=== PATIENT | female | born 1950 | race African-American/Black ===

== ENCOUNTER 2023-10-06 11:38 | Emergency (ER) | payer MEDICARE, SELFPAY ==
[2023-10-06] VITALS (27 sets, daily range): BP systolic 155–203; BP diastolic 81–98; PULSE 71–99; RESP 12–30; TEMP 36.2; O2SAT 94–100; BMI 39.1
--- NOTE | 2023-10-06 12:46 | ED_ITS ---
HPI - General Adult General Chief complaint: Dizziness Stated complaint: DIZZY/ VERTIGO L/SIDE NUMBNESS/CONFUSION Time Seen by Provider: 10/06/23 12:44 Source: patient Mode of arrival: Ambulatory History of Present Illness HPI narrative: 73-year-old female with history of hypertension, thyroidectomy on Synthroid presents with headache and left-sided tingling. She states she felt well until around 9:00 p.m. last night, when she developed gradual headache, not sudden or severe, not unilateral. She then gradually developed left-sided arm and leg tingling and feeling of heaviness. No visual or hearing changes. No neck pain. No chest pain. No back or flank or abdominal pain. No extremity pain. No other focal numbness or weakness, fevers or chills, shortness of breath, lightheadedness or passing out, previous similar episodes, difficulty speaking or eating, or any other changes. Related Data Allergies Allergy/AdvReac Type Severity Reaction Status Date / Time No Known Drug Allergies Allergy Verified 10/06/23 11:49 Review of Systems Review of Systems Narrative: Constitutional: no fever, no chills Eyes: no visual disturbance, no discharge Ears, Nose, Mouth, Throat: no rhinorrhea, no sore throat Cardiovascular: no chest pain, no palpitations Respiratory: no cough, no shortness of breath Gastrointestinal: no abdominal pain, no vomiting, no diarrhea Genitourinary: no dysuria, no hematuria Musculoskeletal: no back pain, no neck stiffness Skin: no rash, no wound Neurological: no focal weakness, + focal numbness Patient History Social History Smoking Status: Never smoker Smoking Status: Never smoker alcohol intake frequency: a few times a month Alcohol type: wine Substance Use Type: does not use Exam Narrative Exam Narrative: Const: no acute distress, non toxic appearing; calm, conversant, pleasant Eyes: PERRLA, EOMI ENT: mucous membranes moist Neck: supple, non-tender; no bruits or thrills; no stiffness or pain with range of motion Resp: no respiratory distress, clear to auscultation bilaterally Card: regular rate and rhythm, no murmurs Abd: non tender diffusely, no rigidity or rebound or guarding Back: no T or L spine tenderness, no CVA tenderness bilaterally Extrem: no deformities, no swelling bilateral lower extremities, 2+ distal pulses all extremities Neuro: ANOx4. director operating 2-12 intact. No rotatory or vertical nystagmus. Normal tone all extremities. Sensation intact to light touch all extremities. No ankle clonus bilaterally. 5/5 motor strength all extremities. Normal FNF BUE; normal heel-farrell test BLE. No pronator drift. No dysarthria. No neglect. Grossly normal cognition. Skin: no rash, warm and dry Initial Vital Signs Initial Vital Signs: Vital Signs Temperature 97.1 F L 10/06/23 11:49 Pulse Rate 99 H 10/06/23 11:49 Respiratory Rate 18 10/06/23 11:49 Blood Pressure 159/85 H 10/06/23 11:49 Pulse Oximetry 97 10/06/23 11:49 Oxygen Delivery Method Room Air 10/06/23 11:49 Course Course Course Narrative: This patient presents with headache and left-sided sensory changes starting last night, currently with fully intact neurovascular exam, with NIHSS of 0. I have considered broad differential including but not limited to electrolyte derangements, ischemic stroke, hemorrhagic stroke, aneurysm, vascular dissection, paresthesias, ACS, among others. Her current well appearance and reassuring exam is reassuring against many emergent etiologies. I am nonetheless obtaining CT head, CTA head and neck, EKG, troponin, CBC, CMP. I am giving fluids and will closely reassess. She declines other medications currently. While I think ischemic stroke is much less likely clinically, note she is well outside of any tPA window and also does not show signs of large vessel occlusion on my exam. EKG NSR without acute ischemia or immediately concerning interval prolongation on my review. CBC with no leukocytosis or anemia. Mild thrombocytopenia present without clear evidence of bleeding. CMP with creatinine at 1.06 without recent for comparison, hyperglycemia, mild hypocalcemia, with bilirubin elevation but no ALT or AST your alk-phos elevation and no abdominal pain or tenderness. Troponin reassuring. Radiology review of imaging below, which I agree with on my independent review: CT Head: FINDINGS: Image quality: Diagnostic. CSF spaces: Basal cisterns are patent. No extra-axial fluid collections. Ventricles are normal in size and shape. Brain: No midline shift. No intracranial masses or hemorrhage. Pruett-white matter interface is normal. Skull and face: Calvarium and visualized facial bones are intact, without suspicious lesions. Sinuses: Visualized sinuses and mastoids are clear. Small left ethmoid osteoma, 7 mm IMPRESSION: Mild atrophy and white matter chronic ischemic change without intracranial hemorrhage or mass effect. Approved by: Herbert Zaman M.D. on 10/06/2023 at 14:08 CTA head/neck: FINDINGS: Cerebral CT Angiogram: Internal carotid arteries: No acute findings. Intracranial ICA are patent with no significant stenosis. No occlusion. No aneurysm. Anterior cerebral arteries: Unremarkable. No significant stenosis. No occlusion. No aneurysm. Middle cerebral arteries: Unremarkable. No significant stenosis. No occlusion. No aneurysm. Posterior cerebral arteries: Unremarkable. No significant stenosis. No occlusion. No aneurysm. Basilar artery: Unremarkable. No significant stenosis. No occlusion. No aneurysm. Vertebral arteries: Unremarkable as visualized. Dural venous sinuses: Unremarkable given phase of enhancement. Other: Arterial phase brain parenchyma is unremarkable. Neck CT Angiogram: Internal carotid arteries: Unremarkable. No significant stenosis. No dissection or occlusion. Common carotid arteries: Unremarkable. No significant stenosis. No dissection or occlusion. External carotid arteries: Unremarkable. No occlusion. Vertebral arteries: Unremarkable. No significant stenosis. No dissection or occlusion. Left vertebral artery dominance Other: None. Aortic Arch and Mediastinum: Partially visualized aortic arch unremarkable without evidence of aneurysm. Origins of the great vessels unremarkable. IMPRESSION: 1. Normal CT angiogram of the head and neck Approved by: Herbert Zaman M.D. on 10/06/2023 at 14:06 Workup is reassuring. At this juncture, I think ischemic stroke is very unlikely. Paresthesias of unknown etiology seem most likely at this time. However, out of caution, I am obtaining brain MRI for further assessment. Radiology review of CXR below, which I agree with on my independent review: FINDINGS: Surgical changes and devices: None. Lungs and pleura: Lungs are clear. No pleural effusions or pneumothorax. Mediastinum: Mediastinal contours appear normal. Heart size is normal. Bones and chest wall: No suspicious bony lesions. Overlying soft tissues appear unremarkable. IMPRESSION: No acute cardiopulmonary abnormality is seen. Approved by: Herbert Zaman M.D. on 10/06/2023 at 14:53 MRI is reassuring, as below: FINDINGS: Image quality: Excellent. CSF Spaces: Basal cisterns are patent. No extra-axial fluid collections. Ventricles are normal in size and shape. Brain: No intracranial masses or hemorrhage. Pruett/white matter interface is normal. Brainstem appears normal. Diffusion-weighted sequence is unremarkable without evidence of acute infarct. Normal intravascular flow voids are present. Atrophy and moderate white matter chronic ischemic change Skull and face: Calvarium has normal marrow signal. Orbits appear normal. Sinuses: Sinuses and mastoids are clear. IMPRESSION: Atrophy and white matter chronic ischemic change without acute infarct, hemorrhage or mass lesion Approved by: Herbert Zaman M.D. on 10/06/2023 at 15:59 Viral swab negative. Blood pressure is elevated here, however without clinical evidence of hypertensive emergency. Discussed with patient for follow-up. Work up has been reassuring. Patient is feeling improved here. Length of symptoms and work up would not clearly suggest TIA. Paresthesias are not of clear etiology at this juncture, but with extensive reassuring work up as above, patient appears stable for discharge. A musculoskeletal etiology such as radiculopathy or pinched nerve it is certainly possible. No evidence of spinal cord compression. She has no other new concerns and is fully neurovascularly intact on repeat exam. We discussed the importance of close follow up and return precautions. Repeat exam and vital signs reassuring. Questions answered. Plan reviewed. Patient discharged in stable condition. Orders Ordered: ED Orders 10/06/23 11:54 Consult to DELIVERY TECH - Front End Loader Driver Stat 10/06/23 12:56 CT angio head and neck Stat CT head/brain wo con Stat XR chest 1V Stat EKG-12 Lead Stat 10/06/23 13:13 CBC Auto Diff [Complete Blood Count AUTO DIFF] Stat CMP [Comprehensive Metabolic Panel] Stat Troponin I Stat 10/06/23 15:16 MR head/brain wo con Stat 10/06/23 15:32 Covid-19 + FLU A/B + RSV - PCR Stat Discontinued Medications Sodium Chloride (Normal Saline 0.9%) 1,000 mls @ 1,000 mls/hr IV BOLUS ONE Stop: 10/06/23 13:58 Last Admin: 10/06/23 13:58 Dose: 1,000 mls/hr Documented By: RB Vital Signs Vital signs: Vital Signs - 8 hr 10/06/23 11:49 10/06/23 12:03 10/06/23 12:30 Temperature 97.1 F L Pulse Rate 99 H 91 H Respiratory Rate 18 20 Blood Pressure 159/85 H 168/84 H Pulse Oximetry 97 95 Oxygen Delivery Method Room Air 10/06/23 12:30 10/06/23 13:00 10/06/23 13:00 Temperature Pulse Rate 85 79 Respiratory Rate 22 17 Blood Pressure 185/93 H Pulse Oximetry 97 Oxygen Delivery Method 10/06/23 13:30 10/06/23 13:45 10/06/23 13:59 Temperature Pulse Rate 80 82 Respiratory Rate 21 22 Blood Pressure 168/81 H Pulse Oximetry 100 99 Oxygen Delivery Method 10/06/23 13:59 10/06/23 14:00 10/06/23 14:01 Temperature Pulse Rate 78 80 Respiratory Rate 17 13 Blood Pressure 175/85 H Pulse Oximetry 98 97 Oxygen Delivery Method 10/06/23 14:01 10/06/23 14:24 10/06/23 14:25 Temperature Pulse Rate 80 75 Respiratory Rate 22 12 Blood Pressure 155/93 H Pulse Oximetry 97 98 Oxygen Delivery Method 10/06/23 14:25 10/06/23 14:30 10/06/23 14:30 Temperature Pulse Rate 74 74 Respiratory Rate 16 22 Blood Pressure 174/86 H Pulse Oximetry 99 98 Oxygen Delivery Method 10/06/23 14:45 10/06/23 15:00 10/06/23 15:00 Temperature Pulse Rate 72 76 Respiratory Rate 17 17 Blood Pressure 156/83 H Pulse Oximetry 96 97 Oxygen Delivery Method 10/06/23 15:15 10/06/23 16:11 10/06/23 16:12 Temperature Pulse Rate 71 81 74 Respiratory Rate 17 18 22 Blood Pressure Pulse Oximetry 94 98 98 Oxygen Delivery Method 10/06/23 16:12 10/06/23 16:15 10/06/23 16:30 Temperature Pulse Rate 79 80 Respiratory Rate 22 20 Blood Pressure 163/87 H Pulse Oximetry 97 99 Oxygen Delivery Method 10/06/23 16:31 10/06/23 16:31 10/06/23 16:45 Temperature Pulse Rate 80 79 Respiratory Rate 16 19 Blood Pressure 203/98 H Pulse Oximetry 99 97 Oxygen Delivery Method 10/06/23 16:58 10/06/23 16:58 10/06/23 17:00 Temperature Pulse Rate 78 75 Respiratory Rate 15 25 H Blood Pressure 197/98 H Pulse Oximetry 97 98 Oxygen Delivery Method 10/06/23 17:10 10/06/23 17:10 10/06/23 17:15 Temperature Pulse Rate 75 78 Respiratory Rate 15 15 Blood Pressure 174/84 H Pulse Oximetry 98 100 Oxygen Delivery Method 10/06/23 17:20 10/06/23 17:20 10/06/23 17:30 Temperature Pulse Rate 76 Respiratory Rate 30 H Blood Pressure 176/87 H 174/88 H Pulse Oximetry 99 Oxygen Delivery Method 10/06/23 17:30 Temperature Pulse Rate 76 Respiratory Rate 19 Blood Pressure Pulse Oximetry 98 Oxygen Delivery Method Medical Decision Making Lab Data 10/06/23 13:13 10/06/23 13:13 Labs: Lab Results 10/06/23 10/06/23 Range/Units 13:13 15:32 WBC 5.0 (4.5-11.0) X10^3/uL RBC 4.72 (4.0-5.2) X10^6/uL Hgb 12.8 (12.0-16.0) g/dL Hct 38.8 (36-46) % MCV 82.1 (80-100) fL MCH 27.1 (26-34) PG MCHC 33.1 (30-36) % RDW 15.6 H (11.6-14.8) % Plt Count 135 L (150-400) X10^3/uL Neut % (Auto) 66.9 (50-75) % Lymph % (Auto) 23.4 L (25-40) % [place] % (Auto) 7.1 (3-14) % Eos % (Auto) 1.7 L (2-4) % Baso % (Auto) 0.9 (0-2) % Neut # (Auto) 3300 (2157-9546) /uL Lymph # (Auto) 1200 (2908-7643) /uL [place] # (Auto) 400 (0-900) /uL Eos # (Auto) 100 (0-450) /uL Baso # (Auto) 0 (0-100) /uL Sodium 141 (137-145) mmol/L Potassium 3.4 (3.4-5.1) mmol/L Chloride 104 (98-107) mmol/L Carbon Dioxide 29 (22-32) mmol/L BUN 18 H (7-17) mg/dL Creatinine 1.06 H (0.52-1.04) mg/dL Estimated GFR 56 L (>60) mL/min BUN/Creatinine Ratio 17.0 (6-22) Glucose 127 H (80-110) mg/dL Calcium 8.1 L (8.4-10.2) mg/dL Total Bilirubin 2.3 H (0.2-1.3) mg/dL AST 25 (14-36) IU/L ALT 18 (<35) IU/L Alkaline Phosphatase 59 (38-126) U/L Troponin I < 0.012 (0.01-0.034) ng/mL Total Protein 8.5 H (6.3-8.2) g/dL Albumin 4.7 (3.5-5.0) g/dL Globulin 3.8 (1.7-4.1) g/dL Albumin/Globulin Ratio 1.2 (1.0-2.8) SARS-CoV-2 (PCR) Negative (Negative) Influenza A (RT-PCR) Flu a negative (NEGATIVE) Influenza B (RT-PCR) Flu b negative (NEGATIVE) RSV (PCR) Negative (Negative) Discharge Plan Departure Patient Disposition: Home Clinical Impression: Paresthesia Activity Restrictions/Additional Instructions: It was a pleasure taking care of you today. It is important to fully read and understand the below. Please ask us if you have any questions. We obtained extensive testing today, with an EKG, labs, substantial CT scans and a brain MRI. Your work up is overall reassuring here. However, it is very important to follow up with your primary doctor within 3-5 days to be reassessed. If you have any new or worsening symptoms, please immediately return. No tests or assessments are perfect, and your condition could private branch exchange service adviser time. If your symptoms change or worsen, it is very important you immediately seek medical care. If you have any new or worsening pain, shortness of breath, fever, vomiting, confusion, numbness, weakness, visual or hearing changes, trouble walking or talking or eating, or anything else that concerns you, please immediately seek medical care. If you have been prescribed any medications: please read the drug package inserts on how to properly use the medication and any potential side effects. If you had labs (blood tests) or imaging (CT scan or x-rays) done during your visit: please follow up on the results of these with your primary care doctor, as discussed. In addition, please know the results we received today may be preliminary. Our usual practice is to follow up on tests within a few days of a patient's discharge from the Emergency Department and notify you of any changes. These may lead to changes to your treatment plan. However, the best way to obtain and interpret these test results is through your Primary Care Provider. If you need to update your contact information, please stop by the java front end web developer and alert the Registration personnel before you leave the Emergency Department. Thank you for the opportunity to participate in your healthcare. We are always here and happy to see you in the future. -- PLEASE TAKE THE ATTACHED IMAGING TO YOUR DOCTORS: CT Head: FINDINGS: Image quality: Diagnostic. CSF spaces: Basal cisterns are patent. No extra-axial fluid collections. Ventricles are normal in size and shape. Brain: No midline shift. No intracranial masses or hemorrhage. Pruett-white matter interface is normal. Skull and face: Calvarium and visualized facial bones are intact, without suspicious lesions. Sinuses: Visualized sinuses and mastoids are clear. Small left ethmoid osteoma, 7 mm IMPRESSION: Mild atrophy and white matter chronic ischemic change without intracranial hemorrhage or mass effect. Approved by: Herbert Zaman M.D. on 10/06/2023 at 14:08 CTA head/neck: FINDINGS: Cerebral CT Angiogram: Internal carotid arteries: No acute findings. Intracranial ICA are patent with no significant stenosis. No occlusion. No aneurysm. Anterior cerebral arteries: Unremarkable. No significant stenosis. No occlusion. No aneurysm. Middle cerebral arteries: Unremarkable. No significant stenosis. No occlusion. No aneurysm. Posterior cerebral arteries: Unremarkable. No significant stenosis. No occlusion. No aneurysm. Basilar artery: Unremarkable. No significant stenosis. No occlusion. No aneurysm. Vertebral arteries: Unremarkable as visualized. Dural venous sinuses: Unremarkable given phase of enhancement. Other: Arterial phase brain parenchyma is unremarkable. Neck CT Angiogram: Internal carotid arteries: Unremarkable. No significant stenosis. No dissection or occlusion. Common carotid arteries: Unremarkable. No significant stenosis. No dissection or occlusion. External carotid arteries: Unremarkable. No occlusion. Vertebral arteries: Unremarkable. No significant stenosis. No dissection or occlusion. Left vertebral artery dominance Other: None. Aortic Arch and Mediastinum: Partially visualized aortic arch unremarkable without evidence of aneurysm. Origins of the great vessels unremarkable. IMPRESSION: 1. Normal CT angiogram of the head and neck Approved by: Herbert Zaman M.D. on 10/06/2023 at 14:06 Workup is reassuring. At this juncture, I think ischemic stroke is very unlikely. Paresthesias of unknown etiology seem most likely at this time. However, out of caution, I am obtaining brain MRI for further assessment. Radiology review of CXR below, which I agree with on my independent review: FINDINGS: Surgical changes and devices: None. Lungs and pleura: Lungs are clear. No pleural effusions or pneumothorax. Mediastinum: Mediastinal contours appear normal. Heart size is normal. Bones and chest wall: No suspicious bony lesions. Overlying soft tissues appear unremarkable. IMPRESSION: No acute cardiopulmonary abnormality is seen. Approved by: Herbert Zaman M.D. on 10/06/2023 at 14:53 MRI is reassuring, as below: FINDINGS: Image quality: Excellent. CSF Spaces: Basal cisterns are patent. No extra-axial fluid collections. Ventricles are normal in size and shape. Brain: No intracranial masses or hemorrhage. Pruett/white matter interface is normal. Brainstem appears normal. Diffusion-weighted sequence is unremarkable without evidence of acute infarct. Normal intravascular flow voids are present. Atrophy and moderate white matter chronic ischemic change Skull and face: Calvarium has normal marrow signal. Orbits appear normal. Sinuses: Sinuses and mastoids are clear. IMPRESSION: Atrophy and white matter chronic ischemic change without acute infarct, hemorrhage or mass lesion Approved by: Herbert Zaman M.D. on 10/06/2023 at 15:59 Referrals: Miscellaneous,DoctorMD [Primary Care Provider] - Stand Alone Forms: Patient Portal/API
--- NOTE | 2023-10-06 12:56 | DI.RAD.S_ITS ---
PROCEDURE: XR CHEST 1V INDICATIONS: L sided tingling TECHNIQUE: One view of the chest was acquired. COMPARISON: None. FINDINGS: Surgical changes and devices: None. Lungs and pleura: Lungs are clear. No pleural effusions or pneumothorax. Mediastinum: Mediastinal contours appear normal. Heart size is normal. Bones and chest wall: No suspicious bony lesions. Overlying soft tissues appear unremarkable. IMPRESSION: No acute cardiopulmonary abnormality is seen. Approved by: Herbert Zaman M.D. on 10/06/2023 at 14:53
--- NOTE | 2023-10-06 12:56 | DI.CT.S_ITS ---
PROCEDURE: CT HEAD/BRAIN WO CON INDICATIONS: L sided tingling, headache TECHNIQUE: Noncontrast 4.5 mm thick angled axial sections acquired from the foramen magnum to the vertex, with coronal and sagittal reformats. For radiation dose reduction, the following was used: automated exposure control, adjustment of mA and/or kV according to patient size. COMPARISON: None. FINDINGS: Image quality: Diagnostic. CSF spaces: Basal cisterns are patent. No extra-axial fluid collections. Ventricles are normal in size and shape. Brain: No midline shift. No intracranial masses or hemorrhage. Pruett-white matter interface is normal. Skull and face: Calvarium and visualized facial bones are intact, without suspicious lesions. Sinuses: Visualized sinuses and mastoids are clear. Small left ethmoid osteoma, 7 mm IMPRESSION: Mild atrophy and white matter chronic ischemic change without intracranial hemorrhage or mass effect. Approved by: Herbert Zaman M.D. on 10/06/2023 at 14:08
--- NOTE | 2023-10-06 12:56 | DI.CT.S_ITS ---
PROCEDURE: CT ANGIO HEAD AND NECK INDICATIONS: headache, L sided tingling TECHNIQUE: After the administration of intravenous contrast, 1 mm thick sections acquired from the aortic arch through the [place]. 3-dimensional lythftu-zfunfovdp-sldkqknfan (MIP) and/or volume rendering reformats were acquired of the central intracranial vasculature and neck separately. For radiation dose reduction, the following was used: automated exposure control, adjustment of mA and/or kV according to patient size. COMPARISON: None. FINDINGS: Cerebral CT Angiogram: Internal carotid arteries: No acute findings. Intracranial ICA are patent with no significant stenosis. No occlusion. No aneurysm. Anterior cerebral arteries: Unremarkable. No significant stenosis. No occlusion. No aneurysm. Middle cerebral arteries: Unremarkable. No significant stenosis. No occlusion. No aneurysm. Posterior cerebral arteries: Unremarkable. No significant stenosis. No occlusion. No aneurysm. Basilar artery: Unremarkable. No significant stenosis. No occlusion. No aneurysm. Vertebral arteries: Unremarkable as visualized. Dural venous sinuses: Unremarkable given phase of enhancement. Other: Arterial phase brain parenchyma is unremarkable. Neck CT Angiogram: Internal carotid arteries: Unremarkable. No significant stenosis. No dissection or occlusion. Common carotid arteries: Unremarkable. No significant stenosis. No dissection or occlusion. External carotid arteries: Unremarkable. No occlusion. Vertebral arteries: Unremarkable. No significant stenosis. No dissection or occlusion. Left vertebral artery dominance Other: None. Aortic Arch and Mediastinum: Partially visualized aortic arch unremarkable without evidence of aneurysm. Origins of the great vessels unremarkable. IMPRESSION: 1. Normal CT angiogram of the head and neck Approved by: Herbert Zaman M.D. on 10/06/2023 at 14:06
--- NOTE | 2023-10-06 13:24 | PC.NURSE ---
Pt placed on 2L, O2 sat 88-89 RA. Currently 92% on 2L with ear probe. Physician advised.
[2023-10-06 13:32] LABS: Add Manual Diff / Slide Review NO; Basophils Absolute Auto 0 /uL (0-100); Basophils Percent Auto 0.9 % (0-2); Eosinophils Absolute Auto 100 /uL (0-450); Eosinophils Percent Auto 1.7 % (2-4); Hematocrit 38.8 % (36-46); Hemoglobin 12.8 g/dL (12.0-16.0); Lymphocytes Absolute Auto 1200 /uL (1100-4500); Lymphocytes Percent Auto 23.4 % (25-40); Mean Corpuscular HGB Conc 33.1 % (30-36); Mean Corpuscular Hemoglobin 27.1 PG (26-34); Mean Corpuscular Volume 82.1 fL (80-100); Monocytes Absolute Auto 400 /uL (0-900); Monocytes Percent Auto 7.1 % (3-14); Neutrophils Absolute Auto 3300 /uL (1500-7000); Neutrophils Percent Auto 66.9 % (50-75); Platelet Count 135 X10^3/uL (150-400); Red Blood Cell Count 4.72 X10^6/uL (4.0-5.2); Red Cell Distribution Width 15.6 % (11.6-14.8)
[2023-10-06 13:52] LABS: Alanine Aminotransferase 18 IU/L (<35); Albumin 4.7 g/dL (3.5-5.0); Albumin Globulin Ratio 1.2 (1.0-2.8); Alkaline Phosphatase 59 U/L (38-126); Aspartate Aminotransferase 25 IU/L (14-36); Bilirubin Total 2.3 mg/dL (0.2-1.3); Blood Urea Nitrogen 18 mg/dL (7-17); Calcium 8.1 mg/dL (8.4-10.2); Carbon Dioxide 29 mmol/L (22-32); Chloride 104 mmol/L (98-107); Estimated Glomerular Filt Rate 56 mL/min (>60); Globulin 3.8 g/dL (1.7-4.1); Glucose 127 mg/dL (80-110); HEMOLYSIS < 15 (0-50); Potassium 3.4 mmol/L (3.4-5.1); Sodium 141 mmol/L (137-145); Total Protein 8.5 g/dL (6.3-8.2)
[2023-10-06] MEDS: SODIUM CHLORIDE 0.9% 1,000 ML 1000 ML IV (13:58)
[2023-10-06 14:04] LABS: Troponin I < 0.012 ng/mL (0.01-0.034)
--- NOTE | 2023-10-06 15:16 | DI.MRI.S_ITS ---
PROCEDURE: MR HEAD/BRAIN WO CON INDICATIONS: [place], L sided sensory changes, assess for stroke TECHNIQUE: Noncontrast axial T1 spin echo, axial T2 fast spin echo, sagittal and axial FLAIR, coronal T2 fast spin echo, axial gradient echo, axial diffusion and ADC through the brain. COMPARISON: None. FINDINGS: Image quality: Excellent. CSF Spaces: Basal cisterns are patent. No extra-axial fluid collections. Ventricles are normal in size and shape. Brain: No intracranial masses or hemorrhage. Pruett/white matter interface is normal. Brainstem appears normal. Diffusion-weighted sequence is unremarkable without evidence of acute infarct. Normal intravascular flow voids are present. Atrophy and moderate white matter chronic ischemic change Skull and face: Calvarium has normal marrow signal. Orbits appear normal. Sinuses: Sinuses and mastoids are clear. IMPRESSION: Atrophy and white matter chronic ischemic change without acute infarct, hemorrhage or mass lesion Approved by: Herbert Zaman M.D. on 10/06/2023 at 15:59
[2023-10-06 16:17] LABS: Influenza A - CEPHEID Flu A NEGATIVE (NEGATIVE); Influenza B - CEPHEID Flu B NEGATIVE (NEGATIVE); Respiratory Syncytial Virus Negative (Negative)
[2023-10-06 16:18] LABS: COVID-19 CEPHEID 4-PLEX PCR Negative (Negative)
--- NOTE | 2023-10-08 13:24 | CM.SWNOTE ---
ED VETERINARY MEAT INSPECTOR f/u Note VETERINARY MEAT INSPECTOR receives consult for f/u call due to concern for patient's need for resources, it is also reported that patient does not have PCP. VETERINARY MEAT INSPECTOR calls patient and leaves VM requesting return call. Laurita Brown, STABBER
== END 2023-10-06 17:46 | disposition home or self-care (01) ==
PROVIDERS: Emergency Provider Emergency Medicine
DX: R20.2 Paresthesia of skin (principal); R51.9 Headache, unspecified; R07.9 Chest pain, unspecified; Z20.822 Contact with and (suspected) exposure to COVID-19
CPT/HCPCS: 0241U; 70450; 70496; 70498; 70551; 71045; 80053; 84484; 85025; 93005; 93010; 99284; Q9967

== ENCOUNTER 2024-05-03 07:24 | Emergency (ER) | payer OTHER, SELFPAY ==
--- NOTE | 2024-05-03 07:27 | ED.GENADULT ---
HPI - General Adult General Chief complaint: Extremity Injury, Upper Stated complaint: right arm pain Time Seen by Provider: 05/03/24 07:27 Source: patient, RN notes reviewed and old records reviewed Mode of arrival: Ambulatory Limitations: no limitations History of Present Illness HPI narrative: This is a 73-year-old female with history of hypertension and hypothyroidism who presents with complaint of right shoulder pain. Patient states it occurred last Saturday she was lifting a heavy object for work and felt pain that gradually worsened into the next day. Patient states pain is very much localized to the shoulder does occasionally radiate down words. No paresthesias noted. No weakness other than occasionally dropping some objects. She notes holding her flexed in across her chest slightly elevated improves her pain. Any sort of movement increases it. She has not noticed any bruising swelling or other skin changes. She did not feel any ripping, popping or tearing sensation. She thought taking a couple days off would help but it is progressed and not improved. Patient states home medications are lisinopril and levothyroxine. She has had a prior hernia repair. No prior surgeries to the shoulder or upper extremity. No known drug allergies. No regular tobacco, occasional alcohol, no recreational drugs. Patient states this did occur at work. She has not taken any [id number] medications. Related Data Previous Rx's Medication Instructions Recorded lisinopril 20 mg tablet 20 mg PO DAILY #90 tabs 10/21/23 Allergies Allergy/AdvReac Type Severity Reaction Status Date / Time No Known Drug Allergies Allergy Verified 10/21/23 08:08 Review of Systems Review of Systems ROS Unobtainable: All systems reviewed & are unremarkable except as noted in HPI and below Patient History Medical History Eczema Alopecia Acne PTSD (post-traumatic stress disorder) Chronic back pain COVID Measles Chicken pox Sickle cell anemia Anemia Heavy menstrual period (~1978) Fibroids (~1977) Chlamydia (~2008) Family history of pancreatic cancer Hypertension Postoperative hypothyroidism Surgical History Anesthesia History of thyroidectomy Family History Father Diabetes mellitus Mother Cancer Diabetes mellitus Hypertension Hyperlipidemia Brother Diabetes mellitus Hypertension Sister Stroke Diabetes mellitus Hyperlipidemia Hypertension Sister Sickle cell anemia Hypertension Grandfather History of heart disease Grandmother Diabetes mellitus Grandmother Diabetes mellitus Family/Other Diabetes mellitus Social History Smoking Status: Never smoker Smoking Status: Never smoker alcohol intake frequency: a few times a month Alcohol type: wine Substance Use Type: does not use Exam Narrative Exam Narrative: GENERAL: Alert and oriented x three, female in mild distress HEENT: Head normocephalic, atraumatic, EOMI, pupils reactive, face symmetric, moist mucous membranes NECK: Supple, full range of motion CARDIOVASCULAR: Regular rate and rhythm without murmurs, rubs or gallops. RESPIRATORY: Breath sounds equal bilaterally, no wheezes rales or rhonchi. ABDOMEN: Soft, nontender. Normoactive bowel sounds all 4 quadrants. No guarding or rebound, rigidity, no mass : No CVA tenderness EXTREMITIES: Normal range of motion, no clubbing or edema. Neurovascularly intact. Patient has tenderness over the right AC joint as well as the biceps groove. No deformity appreciated. Increased pain with movement at both of these locations. Substation Supervisor are equal bilaterally, 5/5 muscle strength although patient is uncomfortable with push and pull movements. 2+ radial pulse. Cap refill less than 2 seconds throughout 5 fingers. Normal sensation throughout. NEUROLOGICAL: Cranial nerves II through XII grossly intact. Moving all extremities SKIN: Warm, dry, no petechiae, no rashes or lesions. Initial Vital Signs Initial Vital Signs: Vital Signs Temperature 97.4 F L 05/03/24 07:31 Pulse Rate 96 H 05/03/24 07:31 Respiratory Rate 16 05/03/24 07:31 Blood Pressure 182/91 H 05/03/24 07:31 Pulse Oximetry 100 05/03/24 07:31 Oxygen Delivery Method Room Air 05/03/24 07:31 Course Orders Ordered: ED Orders 05/03/24 07:36 XR shoulder RT min 2V Stat Discontinued Medications Acetaminophen (Acetaminophen 325 Mg Tablet) 650 mg PO NOW ONE Stop: 05/03/24 07:37 Last Admin: 05/03/24 07:47 Dose: 650 mg Ibuprofen (Ibuprofen 400 Mg Tablet) 800 mg PO NOW ONE Stop: 05/03/24 07:37 Last Admin: 05/03/24 07:47 Dose: 800 mg Vital Signs Vital signs: Vital Signs - 8 hr 05/03/24 07:31 05/03/24 08:07 05/03/24 08:09 Temperature 97.4 F L Pulse Rate 96 H 77 Pulse Rate [Right Radial] 77 Respiratory Rate 16 18 Blood Pressure 182/91 H Pulse Oximetry 100 98 Oxygen Delivery Method Room Air Room Air Medical Decision Making Imaging Data Extremity x-ray #1: Radiologist's Impression: Jorge Bond??73??F??1950 ? Allergy/Adv: No Known Drug Allergies (More??) Close Shoulder X-Ray (Signed) Fernandez Baldwin - 05/03/24 Brain MRI (Signed) Herbert Zaman - 10/06/23 Head/Neck CTA (Signed) Austyn,Herbert - 10/06/[address] (Signed) Zaman,Herbert - 10/06/23 Chest X-Ray (Signed) Zaman,Herbert - 10/06/23 [address] [address] XRay Report Signed Patient: Jorge Bond MR#: [id number] : 1950 Acct:[id number] Age/Sex: 73 / F Date of Service: 05/03/24 Loc: ED Accession Number: [id number] Procedure: XR shoulder RT min 2V Ordering Provider: Esthela Sandoval D.O. PROCEDURE: XR SHOULDER RT MIN 2V INDICATIONS: right ac pain after lifting heavy object. TECHNIQUE: 3 views of the shoulder were acquired. COMPARISON: None. FINDINGS: Bones: No fractures or dislocations. Focal irregularity is seen involving the acromioclavicular joint, without malalignment. No suspicious bony lesions. Visualized ribs appear intact. Generalized degenerative changes are seen. Soft tissues: No suspicious soft tissue calcifications. IMPRESSION: Focal irregularity of the acromioclavicular joint, yet without malalignment. No fractures or dislocations are seen. Generalized degenerative changes are seen by plain film. If it would be helpful for clinical management decision making, please consider a dedicated, scheduled shoulder MRI for further evaluation (assuming that there is no contraindication). Dictated by: Fernandez Baldwin M.D. on 05/03/2024 at 7:12 Approved by: Fernandez Baldwin M.D. on 05/03/2024 at 7:13 [facility] Narrative Medical decision making narrative: 73-year-old female with right shoulder pain that occurred while lifting heavy object has been persistent without any improvement over the last several days. Patient has tenderness over the right AC joint no obvious deformity as well as the biceps groove. She does not appear uncomfortable. Suspect possible AC joint tear versus ligamentous or tendon or muscle injury. Shoulder x-ray, no fractures or dislocations focal irregularity seen involving the AC joint without malalignment no suspicious bony lesions visualized ribs appear intact. Generalized degenerative changes are seen. It is helpful for clinical management decision making consider dedicated scheduled shoulder MRI for further evaluation. Patient received Tylenol and ibuprofen. Patient placed in sling, ice pack was given as well. Plan for follow up with primary care versus orthopedic surgery through L and I for recheck if no improvement. Discussed findings from imaging with the patient and potential need for follow up and further imaging. Patient L&I paperwork filled out. Discussed decreased activity and use and if no improvement in next week need for follow up. Discharge Plan Departure Patient Disposition: Home Clinical Impression: Right shoulder pain, Injury of right acromioclavicular joint Instructions: DI for Shoulder Pain Activity Restrictions/Additional Instructions: Follow up in the next week with primary care or orthopedic surgery for recheck if you are not having any improvement. Please let them know that you are in L&I patient. Your imaging does not show any fracture or dislocations there is a little bit of irregularity seen at the acromioclavicular joint, if you are having persistent symptoms maybe helpful to follow up with a scheduled MRI for your shoulder. You can take acetaminophen up to a 1000 mg every 6 hours and/or ibuprofen up to 600 mg every 6 hours as needed for pain. You can wear the sling as needed, make sure to perform some range of motion daily in the shoulder to prevent frozen shoulder. Elevated affected body part to decrease swelling. OK to use ice pack on the affected body part. Use for 15-20 minutes each time, for 5-6x per day. If you develop worsening pain, numbness, tingling, discoloration of the affected body part, adjust the sling, and either see your doctor for an urgent re-assessment, or return to the Emergency Department. Return to the Emergency Department for any new or worsening symptoms. Prescriptions: No Action lisinopril 20 mg tablet 20 mg PO DAILY Qty: 90 3RF Referrals: Lupis Levine MD [Physician] - Christin Alan DO [Primary Care Provider] - Stand Alone Forms: Patient Portal/API, Work Release Note
[2024-05-03 07:31] VITALS: BP 182/91; PULSE 96; RESP 16; TEMP 36.3; O2SAT 100; BMI 40.3
--- NOTE | 2024-05-03 07:36 | DI.RAD.S_ITS ---
PROCEDURE: XR SHOULDER RT MIN 2V INDICATIONS: right ac pain after lifting heavy object. TECHNIQUE: 3 views of the shoulder were acquired. COMPARISON: None. FINDINGS: Bones: No fractures or dislocations. Focal irregularity is seen involving the acromioclavicular joint, without malalignment. No suspicious bony lesions. Visualized ribs appear intact. Generalized degenerative changes are seen. Soft tissues: No suspicious soft tissue calcifications. IMPRESSION: Focal irregularity of the acromioclavicular joint, yet without malalignment. No fractures or dislocations are seen. Generalized degenerative changes are seen by plain film. If it would be helpful for clinical management decision making, please consider a dedicated, scheduled shoulder MRI for further evaluation (assuming that there is no contraindication). Dictated by: Fernandez Baldwin M.D. on 05/03/2024 at 7:12 Approved by: Fernandez Baldwin M.D. on 05/03/2024 at 7:13
[2024-05-03] MEDS: IBUPROFEN 400 MG TABLET 800 MG PO (07:47)
[2024-05-03] MEDS: ACETAMINOPHEN 325 MG TABLET 650 MG PO (07:47)
[2024-05-03 08:07] VITALS: PULSE 77
[2024-05-03 08:09] VITALS: PULSE 77; RESP 18; O2SAT 98
== END 2024-05-03 08:27 | disposition home or self-care (01) ==
PROVIDERS: Emergency Provider Emergency Medicine; PCP Family Medicine
DX: S49.91XA Unspecified injury of right shoulder and upper arm, initial encounter (principal); M25.511 Pain in right shoulder; X50.0XXA Overexertion from strenuous movement or load, initial encounter; I10 Essential (primary) hypertension; E03.9 Hypothyroidism, unspecified
CPT/HCPCS: 73030; 99283

== ENCOUNTER → 2024-09-17 09:12 | Outpatient (CLI) | payer MEDICARE, SELFPAY ==
[2024-09-17 10:06] LABS: Add Manual Diff / Slide Review NO; Basophils Absolute Auto 0 /uL (0-100); Basophils Percent Auto 0.7 % (0-2); Eosinophils Absolute Auto 100 /uL (0-450); Eosinophils Percent Auto 2.4 % (2-4); Hematocrit 37.9 % (36-46); Hemoglobin 12.7 g/dL (12.0-16.0); Lymphocytes Absolute Auto 900 /uL (1100-4500); Lymphocytes Percent Auto 25.2 % (25-40); Mean Corpuscular HGB Conc 33.4 % (30-36); Mean Corpuscular Hemoglobin 27.7 PG (26-34); Mean Corpuscular Volume 82.8 fL (80-100); Monocytes Absolute Auto 200 /uL (0-900); Monocytes Percent Auto 5.1 % (3-14); Neutrophils Absolute Auto 2300 /uL (1500-7000); Neutrophils Percent Auto 66.6 % (50-75); Platelet Count 119 X10^3/uL (150-400); Red Blood Cell Count 4.58 X10^6/uL (4.0-5.2); Red Cell Distribution Width 15.6 % (11.6-14.8); White Blood Cell Count 3.4 X10^3/uL (4.5-11.0)
[2024-09-17 10:21] LABS: Hemoglobin A1C% w Est Avg Glu 8.2 % (4.0-6.0)
[2024-09-17 10:31] LABS: Alanine Aminotransferase 19 IU/L (<35); Albumin 4.5 g/dL (3.5-5.0); Albumin Globulin Ratio 1.7 (1.0-2.8); Alkaline Phosphatase 51 U/L (38-126); Aspartate Aminotransferase 27 IU/L (14-36); BUN Creatinine Ratio 10.6 (6-22); Bilirubin Total 1.1 mg/dL (0.2-1.3); Blood Urea Nitrogen 10 mg/dL (7-17); Calcium 7.3 mg/dL (8.4-10.2); Carbon Dioxide 28 mmol/L (22-32); Chloride 104 mmol/L (98-107); Cholesterol 226 mg/dL (140-199); Estimated Glomerular Filt Rate > 60 mL/min (>60); Globulin 2.7 g/dL (1.7-4.1); Glucose 164 mg/dL (80-110); HDL Cholesterol 68 mg/dL (40-60); HEMOLYSIS < 15 (0-50); LDL Cholesterol Calculated 139 mg/dL (<100); Potassium 3.7 mmol/L (3.4-5.1); Sodium 139 mmol/L (137-145); Total Protein 7.2 g/dL (6.3-8.2); Triglycerides 97 mg/dL (35-150)
[2024-09-17 10:57] LABS: TSH w/ Reflex to FT4 4.23 uIU/mL (0.47-4.68)
== END ==
PROVIDERS: PCP Family Medicine; Referring Provider Family Medicine; Visit Provider Family Medicine
DX: I10 Essential (primary) hypertension (principal); R73.09 Other abnormal glucose; E89.0 Postprocedural hypothyroidism; Z68.39 Body mass index [BMI] 39.0-39.9, adult
CPT/HCPCS: 36415; 80053; 80061; 83036; 84443; 85025

== ENCOUNTER → 2024-12-11 07:43 | Outpatient (CLI) | payer MEDICARE, SELFPAY ==
--- NOTE | 2024-12-11 07:44 | DI.ECHO.S_ITS ---
[place] [facility]+ [facility] : : [address] : [address] : : [id number] : : Phone: [phone] Echocardiogram Report + + :Name: ANA VALERA Study Date: 12/11/2024 Height: 66 in : :[facility] ReadingLocation: Weight: 200 lb : : Gender: Female BSA: 2.0 m2 : :: 1950 Age: 74 yrs BP: 209/118 mmHg: :Reason For Study: HYPERTENSION : :Ordering Physician: YOMAIRA, : :HENNA Performed By: Perry Sierra : :Referring: HENNA BURNETTE : + + Interpretation Summary The left ventricle is normal in size. The left ventricle is hyperdynamic. The ejection fraction is estimated to be 70-75%. There are no focal wall motion abnormalities. Diastolic parameters suggest a relaxation abnormality of the left ventricle, consistent with probable normal filling pressures. The right ventricle is normal in size and function. Pulmonary artery pressures cannot be estimated because of the lack of a measurable TR jet velocity but the IVC suggests a CVP of around 3 mmHg. Borderline left atrial enlargement. There is no significant valvular heart disease. The aortic root is normal size. Procedure: A two-dimensional transthoracic echocardiogram with color flow and Doppler was performed. The study quality was technically good. There is no prior echocardiogram noted for this patient. The patient was in normal sinus rhythm during the exam. Left Ventricle: The left ventricle is normal in size. Left ventricular wall thickness is mildly increased. There is no ventricular septal defect visualized. The left ventricle is hyperdynamic. The ejection fraction is estimated to be 70-75%. There are no focal wall motion abnormalities. Diastolic parameters suggest a relaxation abnormality of the left ventricle, consistent with probable normal filling pressures. Right Ventricle: The right ventricle is normal in size and function. Atria: Borderline left atrial enlargement. Right atrial size is normal. The atrial septum is aneurysmal. Mitral Valve: The mitral valve leaflets appear normal. There is no evidence of stenosis, fluttering, or prolapse. There is no mitral regurgitation noted. Aortic Valve: The aortic valve is trileaflet. The aortic valve opens well. No aortic regurgitation is present. Tricuspid Valve: The tricuspid valve leaflets are thin and pliable. There is a trace or physiologic amount of tricuspid regurgitation. Pulmonary artery pressures cannot be estimated because of the lack of a measurable TR jet velocity but the IVC suggests a CVP of around 3 mmHg. Pulmonic Valve: The pulmonic valve is not well seen, but is grossly normal. There is no pulmonic valvular regurgitation. There is no significant valvular heart disease. Great Vessels: The aortic root is normal size. The dimensions of the ascending aorta are normal. The pulmonary artery is normal size. The IVC is of normal diameter and collapses greater than 50% with a sniff. This suggests a low right atrial pressure of 3 mm Hg. Pericardium/ Pleura There is no pericardial effusion. There is no pleural effusion. MMode/2D Measurements & Calculations LVIDd: 3.6 cm LVOT diam: 1.9 cm LVIDs: 2.3 cm Ao root diam: 3.2 cm FS: 37.1 % asc Aorta Diam: 3.0 cm EPSS: 0.61 cm IVSd: 1.4 cm LVPWd: 1.3 cm LV joe. diameter/BSA (cm/m^2): 1.8 LV sys. diameter/BSA (cm/m^2): 1.1 LA A2 area: 18.7 cm2 RA long axis: 4.3 cm LA A4 area: 18.6 cm2 RA area: 15.6 cm2 LA length (vol): 4.7 cm RA vol: 47.7 ml LA vol: 63.3 ml RA : 23.8 ml/m2 LA vol index: 31.7 ml/m2 IVC diam: 2.0 cm RVD1 (basal): 3.4 cm RVD2 (mid): 2.3 cm Doppler Measurements & Calculations Ao V2 max: 132.4 cm/sec LVOT Max Fidel: 113.1 cm/sec Ao V2 mean: 95.1 cm/sec LV V1 max P.1 mmHg Ao max P.0 mmHg LV V1 VTI: 22.1 cm Ao mean P.0 mmHg LUCIO(I,D): 2.3 cm2 Ao V2 VTI: 26.8 cm LUCIO(V,D): 2.4 cm2 sev ratio: 0.82 LUCIO indexed to BSA (cm^2/m^2): 1.2 MV E max fidel: 61.0 cm/sec TR max fidel: 244.2 cm/sec MV A max fidel: 91.8 cm/sec TR max P.9 mmHg MV E/A: 0.66 PA V2 max: 83.5 cm/sec Med Peak E' Fidel: 3.9 cm/sec PA V2 mean: 59.5 cm/sec E/E' med: 15.8 PA mean P.6 mmHg Lat Peak E' Fidel: 4.1 cm/sec PA pr(Accel): 32.8 mmHg E/E' lat: 15.0 E/e' average: 15.4 MV dec time: 0.24 sec SV(LVOT): 62.0 ml Reading Physician:05:20 PM
== END ==
LOC: ECHO 07:44
PROVIDERS: PCP Family Medicine; Referring Provider Family Medicine; Visit Provider Family Medicine
DX: E11.9 Type 2 diabetes mellitus without complications (principal); I10 Essential (primary) hypertension; E89.0 Postprocedural hypothyroidism; I51.7 Cardiomegaly
CPT/HCPCS: 93306